=== PATIENT | female | born 1990 | race African-American/Black ===

== ENCOUNTER 2022-03-10 04:18 | Emergency (ER) | payer OTHER ==
[2022-03-10] MEDS ORDERED: Gabapentin 300 MG CAP ONE (04:33)
[2022-03-10] MEDS ORDERED: Ketorolac Tromethamine 30 MG/ML VIAL ONE (04:33)
== END 2022-03-10 04:53 | disposition home or self-care (01) ==
LOC: CSHERS 04:18
DX: M54.32 Sciatica, left side (principal)
CPT/HCPCS: 99283; J1885

== ENCOUNTER 2022-03-25 23:20 | Emergency (ER) | payer OTHER ==
[2022-03-26] MEDS ORDERED: Ondansetron ODT 4 MG TAB ONE (01:21)
[2022-03-26] MEDS ORDERED: Ibuprofen 200 MG TAB ONE (01:22)
[2022-03-26] MEDS ORDERED: Meclizine HCl 25 MG TAB ONE (01:24)
== END 2022-03-26 03:40 | disposition home or self-care (01) ==
LOC: CSHERS 23:20
DX: S09.90XA Unspecified injury of head, initial encounter (principal); S20.212A Contusion of left front wall of thorax, initial encounter; H81.10 Benign paroxysmal vertigo, unspecified ear; W22.8XXA Striking against or struck by other objects, initial encounter
CPT/HCPCS: 36416; 70450; 71045; 93005; Q0162